=== PATIENT | female | born 1965 | race American Indian/Alaskan Native ===

== ENCOUNTER 2018-01-24 10:20 | Day surgery (SDC) | payer OTHER ==
[2018-01-24] MEDS ORDERED: DILAUDID IV PRN (11:14)
--- NOTE | 2018-01-24 11:16 | Anesthesia Day of Surgery ---
Anesthesia Day of Surgery - Day of Surgery Patient Examined: Yes Patient H&P Reviewed: Yes Patient is NPO: Yes
--- NOTE | 2018-01-24 11:16 | Anesthesia Consultation ---
Anesthesia Consult and Med Hx Date of service: 01/24/18 - Airway Anesthetic Teeth Evaluation: Good ROM Head & Neck: Adequate Mental/Hyoid Distance: Adequate Mallampati Class: Class II Intubation Access Assessment: Probably Good - Pulmonary Exam CTA: Yes - Cardiac Exam Cardiac Exam: RRR - Pre-Operative Health Status ASA Pre-Surgery Classification: ASA2 Proposed Anesthetic Plan: General - Pulmonary Hx Smoking: No - Cardiovascular System Hx Hypertension: Yes Hx Heart Attack/AMI: No - Central Nervous System CVA: No Hx Psychiatric Problems: No - Gastrointestinal Hx Gastroesophageal Reflux Disease: Yes (asymptomatic today) - Endocrine Hx Renal Disease: No Hx Liver Disease: No Hx Insulin Dependent Diabetes: No Hx Thyroid Disease: No - Other Systems Hx Alcohol Use: Yes (OCCAS) Hx Substance Use: No Hx Cancer: No Hx Obesity: Yes
[2018-01-24] MEDS ORDERED: VERSED IV NR (12:00)
[2018-01-24] MEDS ORDERED: LACTATED RINGERS 1,000 ML IV SCH (12:00)
[2018-01-24] MEDS ORDERED: NEURONTIN PO NR (12:00)
[2018-01-24] MEDS ORDERED: HEPARIN SUB-Q NR (12:15)
[2018-01-24] MEDS ORDERED: ZEMURON IV ONE (12:34)
[2018-01-24] MEDS ORDERED: XYLOCAINE MPF 2% ONE (12:34)
[2018-01-24] MEDS ORDERED: DIPRIVAN 10 MG/ML IV ONE (12:35)
[2018-01-24] MEDS ORDERED: DILAUDID ONE (12:35)
[2018-01-24] MEDS ORDERED: MARCAINE-EPI 0.5%-1:200,000 INFILTRATI ONE ×2 (12:48→13:21)
[2018-01-24] MEDS ORDERED: ANCEF/STERILE WATER 2 GM/20 ML IV NR (13:00)
[2018-01-24] MEDS ORDERED: ZOFRAN ONE (13:37)
[2018-01-24] MEDS ORDERED: ROBINUL ONE ×2 (13:37)
[2018-01-24] MEDS ORDERED: DECADRON ONE (13:37)
[2018-01-24] MEDS ORDERED: BLOXIVERZ ONE (13:37)
[2018-01-24] MEDS ORDERED: SUBLIMAZE ONE (13:39)
--- NOTE | 2018-01-24 13:53 | Post Operative Note ---
Pre-op diagnosis: Incarcerated ventral hernia Post-op diagnosis: same Findings: Open repair with small Ventralex ST mesh Procedure: See findings. Anesthesia: other (LMA) Surgeon: BRITTANEY AMEZCUA Estimated blood loss: minimal Pathology: none Specimen disposition: discarded Condition: stable Disposition: PACU
[2018-01-24 15:14] VITALS: BP 110/74
--- NOTE | 2018-01-24 16:37 | Post Anesthesia Evaluation ---
- Post Anesthesia Evaluation Patient Participated: Yes Airway Patent: Yes Stable Respiratory Function: Yes Nausea/Vomiting: No Temp > 96.8F: Yes Pain Manageable: Yes Adequeate Hydration: Yes Anesthesia Complications: No
--- NOTE | 2018-01-28 10:58 | Operative Report ---
Operative Report Operative Report: Date of operation: 01/24/2018 Preoperative diagnosis: Incarcerated ventral hernia Postoperative diagnosis: Same with incarcerated omentum Surgeon: Erik Flannery M.D. Findings: Incarcerated omentum Anesthesia: GETA EBL: Minimal There were no complications, drains, cultures or specimens. Description of procedure: Patient was placed supine on the operating room table. GETA was administered. Abdomen was prepped and draped. A small incision was made over the palpable incarcerated hernia. The hernia sac was immediately identified. The hernia sac was dissected free from the adjacent skin and subcutaneous tissue. The hernia sac was incised and was found to contain incarcerated omentum. The omentum was freed up from the hernia sac and the omentum reduced back into the peritoneal cavity. The hernia sac was excised at the level of the fascia. I then ensured that there were no adhesions to the anterior abdominal wall by sweeping my finger intraperitoneally. A small piece of Ventralex ST mesh was inserted through the fascial defect into the peritoneal cavity. This was secured to the fascia with simultaneous closure of the fascia over the mesh with multiple interrupted sutures of 0 Ethibond. Subcutaneous tissue was approximated with a running suture of 3-0 Vicryl. Skin was approximated with a running subcuticular suture of 40 Monocryl. Mastisol and Steri-Strips were then applied across the incision followed by a sterile absorbent dressing. Patient was extubated in the operating room. She was taken to PACU in stable condition.
== END 2018-01-24 15:30 | disposition home or self-care (01) ==
LOC: OR 10:20
PROVIDERS: ATTEND Surgery
DX: K43.6 Other and unspecified ventral hernia with obstruction, without gangrene (principal); K43.9 Ventral hernia without obstruction or gangrene; I10 Essential (primary) hypertension; K21.9 Gastro-esophageal reflux disease without esophagitis; M19.90 Unspecified osteoarthritis, unspecified site; E66.9 Obesity, unspecified; Z68.36 Body mass index [BMI] 36.0-36.9, adult; Z90.710 Acquired absence of both cervix and uterus; Z98.891 History of uterine scar from previous surgery; Z98.890 Other specified postprocedural states; Z80.3 Family history of malignant neoplasm of breast; Z72.89 Other problems related to lifestyle; Z79.899 Other long term (current) drug therapy; Z85.3 Personal history of malignant neoplasm of breast
CPT/HCPCS: 49561; 49568; C1781; J0690; J1100; J1170; J1644; J2250; J2405; J2704; J2710; J3010; J7120